=== PATIENT | male | born 2000 | race Two or more races ===

== ENCOUNTER → 2020-03-15 | Outpatient (CLI) | payer OTHER | END | disposition home or self-care (01) | LOC: OFIC 805 09:36 | PROVIDERS: ATTEND Otolaryngology | DX: H90.3 Sensorineural hearing loss, bilateral (principal); R09.81 Nasal congestion; H61.23 Impacted cerumen, bilateral ==

== ENCOUNTER 2020-06-09 13:51 | Outpatient (CLI) | payer OTHER | END 2020-06-09 14:50 | disposition home or self-care (01) | LOC: OFIC 805 13:51 | PROVIDERS: ATTEND Otolaryngology | DX: H93.8X3 Other specified disorders of ear, bilateral (principal); H61.23 Impacted cerumen, bilateral ==

== ENCOUNTER → 2020-08-19 | Outpatient (CLI) | payer OTHER | END | disposition home or self-care (01) | LOC: OFIC 805 11:58 | PROVIDERS: ATTEND Otolaryngology | DX: H93.8X3 Other specified disorders of ear, bilateral (principal); H90.3 Sensorineural hearing loss, bilateral; H61.23 Impacted cerumen, bilateral ==